=== PATIENT | female | born 1985 | race African-American/Black ===

== ENCOUNTER 2017-11-17 10:44 | Emergency (ER) | payer SELFPAY ==
[~2017-11-17] VITALS: Ht 160 cm; Wt 120.2 kg
--- NOTE | 2017-11-17 11:01 | EKG ---
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
[2017-11-17 11:38] LABS: BASO % 1 % (0-3); EOS # 0.1 x10^3/uL (0.0-0.7); EOS % 1 % (0-3); HEMATOCRIT 33.4 % (36.0-47.0); HEMOGLOBIN 10.8 g/dL (12.0-15.5); LYMPH # 1.5 x10^3/uL (1.0-4.8); LYMPH % 23 % (24-48); MEAN CORPUSCULAR HEMOGLOBIN 24 pg (25-35); MEAN CORPUSCULAR HGB CONC 33 g/dL (31-37); MEAN CORPUSCULAR VOLUME 74 fL (79-100); MONO # 0.5 x10^3/uL (0.0-1.1); MONO % 8 % (0-9); NEUT # 4.3 x10^3uL (1.8-7.7); NEUT % 68 % (31-73); PLATELET COUNT 309 x10^3/uL (140-400); WHITE BLOOD COUNT 6.4 x10^3/uL (4.0-11.0)
[2017-11-17 11:58] LABS: ALBUMIN 2.9 g/dL (3.4-5.0); ALBUMIN/GLOBULIN RATIO 0.6 (1.0-1.7); ALK PHOS 70 U/L (46-116); ALT (SGPT) 26 U/L (14-59); ANION GAP 8 (6-14); AST (SGOT) 16 U/L (15-37); BLOOD UREA NITROGEN 6 mg/dL (7-20); BUN/CREATININE RATIO 8 (6-20); CALCIUM 8.8 mg/dL (8.5-10.1); CARBON DIOXIDE 28 mmol/L (21-32); CHLORIDE 103 mmol/L (98-107); CREATININE 0.8 mg/dL (0.6-1.0); GFR 83.7; GLUCOSE 99 mg/dL (70-99); MAGNESIUM 1.9 mg/dL (1.8-2.4); POTASSIUM 3.9 mmol/L (3.5-5.1); SODIUM 139 mmol/L (136-145); TOTAL BILIRUBIN 0.3 mg/dL (0.2-1.0); TOTAL PROTEIN 7.5 g/dL (6.4-8.2)
--- NOTE | 2017-11-17 11:58 | PHYS DOC ---
Past History Past Medical History: No Pertinent History Smoking: Non-smoker Drug Use: None Adult General Chief Complaint Chief Complaint: SHORTNESS OF BREATH HPI HPI 32-year-old female patient without medical problems complaining of right upper chest wall pain that started 4 days ago and resolved after a couple of years. Patient complaining of the same pain since last night as a constant and sharp pain without radiation that getting worse with movements and taking deep breath. She denies shortness of breath, nausea, palpitation, recent immobilization or history of DVT and PE, taking oral contraception, overusing her arm or increasing physical activity and rated her pain 4/10. Patient complaining of right upper quadrant discomfort feeling and states she took hydrocodone several days ago and had to stop this because of swelling of her leg with improvement of edema. She denies vomiting and diarrhea and urinary symptom. Patient does not have cardiac risk factors and denies family history of coronary artery disease. Review of Systems Review of Systems Constitutional: Denies fever or chills [] Eyes: Denies change in visual acuity, redness, or eye pain [] HENT: Denies nasal congestion or sore throat [] Respiratory: Denies cough or shortness of breath [] Cardiovascular: No additional information not addressed in HPI [] GI: Denies abdominal pain, nausea, vomiting, bloody stools or diarrhea [] : Denies dysuria or hematuria [] Musculoskeletal: Denies back pain or joint pain [] Integument: Denies rash or skin lesions [] Neurologic: Denies headache, focal weakness or sensory changes [] Endocrine: Denies polyuria or polydipsia [] All other systems were reviewed and found to be within normal limits, except as documented in this note. Allergies Allergies Allergies Coded Allergies Type Severity Reaction Last Updated Verified No Known Drug Allergies 11/17/17 No Physical Exam Physical Exam Constitutional: Well developed, well nourished, no acute distress, non-toxic appearance, morbidly obese. [] HENT: Normocephalic, atraumatic, bilateral external ears normal, oropharynx moist, no oral exudates, nose normal. [] Eyes: PERRLA, EOMI, conjunctiva normal, no discharge. [] Neck: Normal range of motion, no tenderness, supple, no stridor. [] Cardiovascular:Heart rate regular rhythm, no murmur [] Lungs & Thorax: Bilateral breath sounds clear to auscultation, right upper chest reproducible pain [] Abdomen: Bowel sounds normal, soft, no tenderness, no masses, no pulsatile masses. [] Skin: Warm, dry, no erythema, no rash. [] Back: No tenderness, no CVA tenderness. [] Extremities: No tenderness, no cyanosis, no clubbing, ROM intact, no edema. [] Neurologic: Alert and oriented X 3, normal motor function, normal sensory function, no focal deficits noted. [] Psychologic: Affect normal, judgement normal, mood normal. [] Current Patient Data Lab Results Laboratory Tests Test 11/17/17 10:18 11/17/17 11:22 POC Urine HCG, Qualitative hcg negative (Negative) White Blood Count 6.4 x10^3/uL (4.0-11.0) Red Blood Count 4.50 x10^6/uL (3.50-5.40) Hemoglobin 10.8 g/dL (12.0-15.5) L Hematocrit 33.4 % (36.0-47.0) L Mean Corpuscular Volume 74 fL (79-100) L Mean Corpuscular Hemoglobin 24 pg (25-35) L Mean Corpuscular Hemoglobin Concent 33 g/dL (31-37) Red Cell Distribution Width 15.0 % (11.5-14.5) H Platelet Count 309 x10^3/uL (140-400) Neutrophils (%) (Auto) 68 % (31-73) Lymphocytes (%) (Auto) 23 % (24-48) L Monocytes (%) (Auto) 8 % (0-9) Eosinophils (%) (Auto) 1 % (0-3) Basophils (%) (Auto) 1 % (0-3) Neutrophils # (Auto) 4.3 x10^3uL (1.8-7.7) Lymphocytes # (Auto) 1.5 x10^3/uL (1.0-4.8) Monocytes # (Auto) 0.5 x10^3/uL (0.0-1.1) Eosinophils # (Auto) 0.1 x10^3/uL (0.0-0.7) Basophils # (Auto) 0.0 x10^3/uL (0.0-0.2) EKG EKG EKG interpreted by me. EKG at 1053 showed[normal sinus rhythm at rate of 96, no acute ST and T wave abnormality, T-wave abnormality in inferior leads Radiology/Procedures Radiology/Procedures [] [address] [address] IMAGING REPORT Signed PATIENT: PAUL LONDON ACCOUNT: [id number] : 1985 LOCATION: ER AGE: 32 SEX: F EXAM STATUS: PRE ER ORD. PHYSICIAN: JESSY MELARA MD REASON: chest pain PROCEDURE: CHEST PA & LATERAL PA and lateral chest x-ray History: Chest pain, cough. Findings: Heart size upper limits of normal. Mediastinal silhouette is normal. There is a subtle heterogeneous stranding density of the lower lobes on the lateral film projecting over the thoracic spine above the diaphragm which appears to correspond asymmetric density of the right lower lobe on the frontal film raising the possibility of right lower lobe segmental atelectasis or early pneumonic infiltrate. Left lung is clear. No pneumothorax or pleural effusions. Bones are unremarkable. Impression: Subtle opacity of the basilar right lower lobe could indicate segmental atelectasis or early pneumonia. Consider follow-up x-rays after treatment to document that this resolves. DICTATED AND SIGNED BY: VERN LIU MD DATE: 11/17/17 1220 CC: JESSY MELARA MD; PCP,UNKNOWN ~ Course & Med Decision Making Course & Med Decision Making Pertinent Labs and Imaging studies reviewed. (See chart for details) Social patient in ER showed 32-year-old female patient with complaining of right -sided chest pain intermittently. Patient had reproducible chest wall pain with unremarkable EKG and labs except for hemoglobin of 10.8. 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 discharge: I've spoken with the patient and/or caregivers. I've explained the patient's condition, diagnosis and treatment plan based on information available to me at this time. I've answered the patient's and/or caregivers questions and addressed any concerns. The patient and/or caregivers have a good understanding the patient's diagnosis, condition and treatment plan as can be expected at this point. Vital signs have been stabilized. The patient's condition is stable for discharge from the emergency department. The patient will pursue further outpatient evaluation with her primary care provider or other designated consulting physician as outlined in the discharge instructions. Patient and/or caregivers are agreeable to this plan of care and follow-up instructions have been explained in detail. The patient and/or caregivers have received these instructions in written format and expressed understanding of these discharge instructions. The patient and her caregivers are aware that if any significant change in condition or worsening of symptoms should prompt him to immediately return to this of the closest emergency department. If an emergent department is not readily available I would encourage him to call 911. [] Dragon Disclaimer Dragon Disclaimer This electronic medical record was generated, in whole or in part, using a voice recognition dictation system. Departure Departure: Impression: Primary Impression: Musculoskeletal chest pain Additional Impressions: Atelectasis of right lung Anemia Morbid obesity Disposition: HOME, SELF-CARE (At 1240) Condition: IMPROVED Referrals: PCP,UNKNOWN (PCP) Patient Instructions: Musculoskeletal Pain Additional Instructions: Apply ice on the affected area Follow-up with your primary care physician in 3-5 days Return to ER if not getting better Scripts Naproxen (NAPROSYN) 500 Mg Tablet 1 TAB PO BID Y for PAIN, #14 TAB 1 Refill Prov: JESSY MELARA MD 11/17/17 Problem Qualifiers JESSY MELARA MD Nov 17, 2017 11:58
[2017-11-17 12:22] VITALS: BP 118/62
--- NOTE | 2017-11-17 12:25 | RAD ---
PA and lateral chest x-ray History: Chest pain, cough. Findings: Heart size upper limits of normal. Mediastinal silhouette is normal. There is a subtle heterogeneous stranding density of the lower lobes on the lateral film projecting over the thoracic spine above the diaphragm which appears to correspond asymmetric density of the right lower lobe on the frontal film raising the possibility of right lower lobe segmental atelectasis or early pneumonic infiltrate. Left lung is clear. No pneumothorax or pleural effusions. Bones are unremarkable. Impression: Subtle opacity of the basilar right lower lobe could indicate segmental atelectasis or early pneumonia. Consider follow-up x-rays after treatment to document that this resolves.
[2017-11-17] MEDS ORDERED: NAPR-683 PO (12:41)
== END 2017-11-17 12:51 | disposition home or self-care (01) ==
LOC: ER 10:44
DX: R07.89 Other chest pain (principal); J98.11 Atelectasis; D64.9 Anemia, unspecified; E66.01 Morbid (severe) obesity due to excess calories; Z68.42 Body mass index [BMI] 45.0-49.9, adult
CPT/HCPCS: 36415; 71046; 80053; 81025; 82553; 83735; 84484; 85025; 93005; 99285-25